=== PATIENT | female | born 1950 | race Hispanic/Latino ===

== ENCOUNTER 2022-05-20 21:59 | Emergency (ER) | payer SELFPAY ==
[2022-05-20] VITALS (8 sets, daily range): BP systolic 157–173; BP diastolic 83–86
[~2022-05-20] VITALS: Ht 137.2 cm; Wt 60.0 kg
[2022-05-20] MEDS ORDERED: METFORMIN HCL500 M1 PO (22:17)
[2022-05-20] MEDS ORDERED: DICLOFENAC50 MG PO (22:18)
[2022-05-20 22:46] LABS: HEMATOCRIT 40.9 % (37.0-47.0); HEMOGLOBIN 13.6 g/dl (12.0-16.0); IMMATURE GRANULOCYTES 0.4 % (0.0-5.0); MEAN CELL VOLUME 92.5 fL CALC (80.0-100.0); MEAN CORPUSCULAR HGB 30.8 pG CALC (26.0-32.0); MEAN CORPUSCULAR HGB CONC 33.3 g/dL CAL (32.0-36.0); NEUT# 2.79 thou/uL (2.00-7.15); RED BLOOD COUNT 4.42 mill/uL (4.20-5.60)
[2022-05-20 23:09] LABS: ALBUMIN 4.5 g/dL (3.2-5.0); ALKALINE PHOSPHATASE 122 u/l (38-126); ANION GAP 15 (6-22 (CALC)); BILIRUBIN, TOTAL 0.3 mg/dL (0.0-1.4); BUN 12 mg/dL (8-23); BUN/CREATININE RATIO 19 (12-20 (CALC)); CARBON DIOXIDE 26 mmol/l (22-30); CHLORIDE 105 mmol/l (95-108); CREATININE 0.6 mg/dL (0.5-1.0); GFR FOR AFR.AMER. > 60 ML/MIN (>=60 (CALC)); GFR OTHER RACES > 60 ML/MIN (>=60 (CALC)); POTASSIUM 4.7 mmol/l (3.5-5.1); SGOT/AST 27 u/l (9-36); SODIUM 140 mmol/l (137-146); TOTAL PROTEIN 7.4 g/dL (6.3-8.2)
[2022-05-21] VITALS: BP 155/90
[2022-05-21] MEDS ORDERED: CLONIDINE0.1 MG PO (00:03)
[2022-05-21 00:10] VITALS: BP 169/87
== END 2022-05-21 00:28 | disposition home or self-care (01) | DRG 305 ==
LOC: ED 21:59
PROVIDERS: Emergency Medicine
DX: I10 Essential (primary) hypertension (principal)